=== PATIENT | female | born 1975 | race Caucasian/White ===

== ENCOUNTER 2021-03-18 22:05 | Emergency (ER) | payer OTHER | END 2021-03-18 23:04 | disposition home or self-care (01) | LOC: FER 22:05 | DX: S93.402A Sprain of unspecified ligament of left ankle, initial encounter (principal); I10 Essential (primary) hypertension; X50.1XXA Overexertion from prolonged static or awkward postures, initial encounter; Y92.009 Unspecified place in unspecified non-institutional (private) residence as the place of occurrence of the external cause | CPT/HCPCS: 73600 ==

== ENCOUNTER 2021-07-05 08:13 | Emergency (ER) | payer OTHER ==
[2021-07-05 09:27] LABS: BASOPHIL 0.5 % (0-2); BILIRUBIN NEGATIVE (NEGATIVE); BLOOD NEGATIVE Ery/uL (NEGATIVE); CLARITY CLEAR (CLEAR); COLOR YELLOW (YELLOW); EOSINOPHIL 0 % (0-5); GLUCOSE (U) NORMAL (NORMAL); HCT 37.3 % (37.0-47.0); HGB 12.9 g/dl (12.5-16.0); LEUKOCYTES NEGATIVE Leu/uL (NEGATIVE); LYMPHOCYTE 11.7 % (15-48); MCH 31.2 pg (25.0-31.0); MCHC 34.6 g/dL (32.0-36.0); MCV 90.1 fL (78.0-100.0); MONOCYTE 3.6 % (0-12); MPV 10.1 fL (6.0-9.5); NEUTROPHIL 83.9 % (41-80); NITRITE NEGATIVE (NEGATIVE); NRBC 0; PLT 241 K/uL (150-400); PROTEIN NEGATIVE (NEGATIVE); RBC 4.14 M/uL (4.20-5.40); RDW 12.2 % (11.5-14.0); UROBILINOGEN 0.2 mg/dL (0.2-1.0); WBC 8.7 K/uL (4.0-10.5); pH 7.5 (5.0-9.0)
[2021-07-05 10:24] LABS: LACTIC ACID 1.2 mmol/L (0.4-1.9)
[2021-07-05 11:46] LABS: ALBUMIN 3.4 g/dL (3.4-5.0); BILIRUBIN - TOTAL 0.3 mg/dL (0.2-1.0); CREATININE 0.83 mg/dL (0.51-0.95); GLOBULIN (CALCULATION) 3.7 g/dL; POTASSIUM 4.2 mmol/L (3.5-5.1); TOTAL PROTEIN 7.1 g/dL (6.4-8.2)
[2021-07-05] MEDS ORDERED: NORCO 5-325 TA1 EACH PO (12:52)
[2021-07-05] MEDS ORDERED: ONDANSETRON ODT4 MG PO (12:52)
[2021-07-05] MEDS ORDERED: FLOMAX0.4 MG PO (12:52)
== END 2021-07-05 13:16 | disposition home or self-care (01) ==
LOC: FER 08:13
PROVIDERS: Emergency Medicine
DX: N13.2 Hydronephrosis with renal and ureteral calculous obstruction (principal); I10 Essential (primary) hypertension; Z79.899 Other long term (current) drug therapy
CPT/HCPCS: 36415; 80053; 81003; 83605; 83690; 84145; 85025; J1170; J1885; J2405; J7030; Q9967